=== PATIENT | male | born 1995 | race Caucasian/White ===

== ENCOUNTER 2019-03-24 10:24 | Inpatient (IN) | payer OTHER ==
[2019-03-23 12:13] VITALS: Ht 170.2 cm; Wt 101.1 kg
[~2019-03-24] VITALS: Ht 170.2 cm; Wt 101.1 kg
[2019-03-24] VITALS (26 sets, daily range): BP systolic 106–128; BP diastolic 56–84; PULSE 78–107; RESP 10–25
[~2019-03-24 10:24] MED LIST: CEFAZOLIN 2 GM/50 ML (PMX) 50 ML IVPB SCH; LACTATED RINGER'S 1,000 ML (ENTER RATE) IV SCH
--- NOTE | 2019-03-24 12:11 | PREAC ---
Date/Time of Note Date/Time of Note DATE: 03/24/19 TIME: 12:09 Anesthesia Eval and Record Evaluation Time Pre-Procedure Interview DATE: 03/24/19 TIME: 12:09 Age 23 Sex male NPO: 8 hrs Preoperative diagnosis L4-5, L5-S1 spinal stenosis Planned procedure L4-5, L5-S1 decompression, L4-5 microdiscectomy Past Medical History Past Medical History: Includes GI: Obesity Surgery & Anesthesia Issues No known issue Meds Anticoagulation: No Beta Kranthi within 24 hr: No Reason Beta Kranthi not given: Pt. not on B-Kranthi No Active Prescriptions or Reported Meds Current Medications Cefazolin Sodium/ Dextrose 50 ml @ 100 mls/hr ONCE IVPB ; Start 03/24/19 at 0 7:00; Stop 03/24/19 at 23:59 Lactated Ringer's 1,000 ml @ 0 mls/hr Q0M IV Last administered on 03/24/19at 11:43; Admin Dose 25 MLS/HR; Start 03/24/19 at 07:00 Meds reviewed: Yes Allergies Coded Allergies: No Known Drug Allergies (Verified Allergy, Unknown, 03/24/19) Allergies Reviewed: Yes Labs/Studies Labs Reviewed: Reviewed by anesthesiologist test: N/A Pre-procedure Exam Last vitals Vital Signs Date Temp Pulse Resp B/P (MAP) Pulse Ox O2 O2 Flow FiO2 Time Delivery Rate 03/24/19 97.1 84 16 119/82 97 Room Air 11:43 (94) Airway: Adequate mouth opening Mallampati: Mallampati II Teeth: Normal Lung: Normal Heart: Normal ASA Physical Status ASA physical status: 2 Emergency: None Planned Anesthetic General/MAC: ETT Planned Pain Management Parenteral pain med Pre-operative Attestations Prior to commencing anesthesia and surgery, the patient was re-evaluated, there was verification of: *The patient's identity *The results of appropriate recent lab work and preoperative vital signs *The above evaluation not changing prior to induction *Anesthetic plan, risk benefits, alternative and complications discussed with patient/family; questions answered; patient/family understands, accepts and wishes to proceed. SHAYAN ESPINAL MD Mar 24, 2019 12:11
[2019-03-24] MEDS ORDERED: POLYMYXIN/BACITRACIN 1L IRRIG ONE (12:59)
[2019-03-24] MEDS ORDERED: BUPIVACAINE 0.25%/EPI (SDV) 30 ML INJ ONE (12:59)
[2019-03-24] MEDS ORDERED: CA CHLORIDE 10% 10 ML SYRINGE ONE (12:59)
[2019-03-24] MEDS ORDERED: THROMBIN 5000 UNIT (RECOTHROM) VIAL ONE ×2 (12:59→15:04)
[2019-03-24] MEDS ORDERED: GELATIN SIZE 100 SPONGE ONE (12:59)
[2019-03-24] MEDS ORDERED: GLYCOPYRROLATE 0.4 MG INJ ONE ×3 (13:04→14:12)
[2019-03-24] MEDS ORDERED: LIDOCAINE 2% (SDV) 5 ML INJ ONE (13:04)
[2019-03-24] MEDS ORDERED: ROCURONIUM 50 MG INJ ONE ×2 (13:04→14:54)
[2019-03-24] MEDS ORDERED: SUCCINYLCHOLINE CHLORIDE 100 MG/5 ML SYG IV ONE (13:04)
[2019-03-24] MEDS ORDERED: NEOSTIGMINE 3 MG/3 ML SYRINGE ONE ×2 (13:04→14:12)
[2019-03-24] MEDS ORDERED: PROPOFOL 20 ML ONE (13:04)
[2019-03-24] MEDS ORDERED: MEPERIDINE 100 MG INJ ONE (13:04)
--- NOTE | 2019-03-24 13:23 | HPN ---
Date/Time of Note Date/Time of Note DATE: 03/24/19 TIME: 13:22 Interval H&P Admission Note Pt. seen H&P reviewed: No system changes JEN CABRERA PA-C Mar 24, 2019 13:23
[2019-03-24] MEDS ORDERED: ONDANSETRON 4 MG INJ IV PRN ×2 (13:30→17:30)
[2019-03-24] MEDS ORDERED: BISACODYL 10 MG SUPP PR PRN (13:30)
[2019-03-24] MEDS ORDERED: ACETAMINOPHEN 325 MG TAB PO PRN (13:30)
[2019-03-24] MEDS ORDERED: CEFAZOLIN 1 GM/50 ML (PMX) 50 ML IVPB SCH (13:30)
[2019-03-24] MEDS ORDERED: DIPHENHYDRAMINE 50 MG INJ IV PRN ×2 (13:30→17:30)
[2019-03-24] MEDS ORDERED: NALOXONE (0.4 MG/ML) INJ IV PRN (13:30)
[2019-03-24] MEDS ORDERED: AL HYDROX/MG HYDROX/SIMETH 30 ML CUP PO PRN (13:30)
[2019-03-24] MEDS ORDERED: traMADol 50 MG TAB PO PRN ×2 (13:30)
[2019-03-24] MEDS ORDERED: DIPHENHYDRAMINE 25 MG CAP PO PRN (13:30)
[2019-03-24] MEDS ORDERED: CEPASTAT LOZENGE MT PRN (13:30)
[2019-03-24] MEDS ORDERED: CEFAZOLIN 1 GM INJ ONE (14:12)
[2019-03-24] MEDS ORDERED: SEVOFLURANE 15 MIN ONE (14:45)
[2019-03-24] MEDS ORDERED: HEPARIN 1000 UNITS/ML 10 ML INJ ONE (14:55)
[2019-03-24] MEDS ORDERED: ONDANSETRON 4 MG INJ ONE (15:57)
--- NOTE | 2019-03-24 16:29 | SIPON ---
Date/Time of Note Date/Time of Note DATE: 03/24/19 TIME: 16:28 Operative Report Preoperative Diagnosis Lumbar radiculopathy Postoperative Diagnosis Lumbar radiculopathy Operation/Procedure Performed Lumbar decompression Surgeon see signature line assistant professor of sociology Aurelia Anesthesia: general Estimated blood loss: 10 - 50 ml's Transfusion Required none Specimen Disc Grafts/Implants none Complications none LINDA MARCIAL MD Mar 24, 2019 16:29
[2019-03-24] MEDS ORDERED: HYDROmorphONE 1 MG/5 ML IV SYRINGE IV ONE (17:06)
[2019-03-24] MEDS ORDERED: LEVALBUTEROL (NEB) 1.25 MG/0.5 ML AMP HHN PRN (17:30)
[2019-03-24] MEDS ORDERED: KETOROLAC 30 MG INJ IV PRN (17:30)
[2019-03-24] MEDS ORDERED: OXYCODONE/ACETAMINOPHEN (5/325) TAB PO PRN ×2 (17:30)
[2019-03-24] MEDS ORDERED: MEPERIDINE 25 MG INJ IV PRN (17:30)
[2019-03-24] MEDS ORDERED: HYDROmorphONE 1 MG/5 ML IV SYRINGE IV PRN ×3 (17:30)
[2019-03-24] MEDS ORDERED: FENTAnyl 50 MCG/ML VIAL IV PRN ×3 (17:30)
--- NOTE | 2019-03-24 17:30 | OPR ---
DATE OF OPERATION: 03/24/2019 PREOPERATIVE DIAGNOSES: 1. Right lumbar radiculopathy with foot drop. 2. Right L4-L5 stenosis. 3. Right L4-5 hematoma. POSTOPERATIVE DIAGNOSES: 1. Right lumbar radiculopathy with foot drop. 2. Right L4-L5 stenosis. 3. Right L4-5 hematoma. OPERATION PERFORMED: 1. Right L4-L5 decompression. 2. Right L4-L5 microdiskectomy. 3. Evacuation of epidural hematoma. 4. Use of operative microscope. 5. Use of C-arm fluoroscopy with rotation without radiologist present. 6. Intraoperative neuromonitoring. PRIMARY SURGEON: Elbert Zepeda MD CORDUR[place] CUTTING SUPERVISOR: Sobia Moses PA-C NEED FOR RIG MANAGER: During this spinal surgical procedure, my hospital aides and assistants teacher was used to retract and protect the spinal nerves and dural sac. My hospital aides and assistants teacher also employed the suction catheters to evacuate blood from the surgical field to improve visualization of the neural structures. The hospital aides and assistants teacher was medically necessary to facilitate the completion of the surgery in a safe and expeditious manner. [facility] [place] regulations, as well as hospital bylaws, preclude the use of non-licensed health care personnel, such as operating room technicians, to perform these functions. FINDINGS: Neuromonitoring at the start of the case revealed left L5 amplitude down 10%, right L5 down 60%, left S1 down 20%, right S1 down 40%. At the end of the case, nerve signals returned to normal. Patient had hematoma around the nerve root. There is active venous bleeding and significant vascularization with compression of the L5 nerve root. There was a disk herniation identified at L4-L5 as well. There is stenosis. ESTIMATED BLOOD LOSS: 50 mL. DRAINS: None. SPECIMENS: L4-L5 disk. COMPLICATIONS OF PROCEDURES: None. ANESTHESIOLOGIST: Dr. Gaytan. TYPE OF ANESTHESIA: General. INDICATIONS FOR PROCEDURE: This is a 23-year-old gentleman who developed a right-sided foot drop. MRI showed a right-sided herniation at L4-L5 with a large hematoma which extended all the way down to S1. Given the neurological deficits, it is recommended he undergo the above procedure. Preoperatively, we discussed risks, benefits, and alternatives. He understood and wished to proceed. Initially, the plan was to decompress all the way down to the sacrum, but a stat MRI was done right before the surgery showing that the hematoma was smaller in nature and was localized to the L4-L5 level and just below the disk space. DESCRIPTION OF PROCEDURE IN DETAIL: The patient was identified in the preoperative holding area, given Ancef antibiotic, taken to the operating room, where he was successfully placed under general anesthesia. Neuromonitoring leads were placed, sequential compressive devices were applied. Remote intraoperative neuromonitoring was performed by Dr. Rosales from 2:00 to 4:30 to include SSEP, MEP, and EMG performed by bettermarks. The patient was placed on the operating table in prone position over a Kal frame. All bony prominences were well padded. Back was then prepped and draped in usual sterile fashion. Using the sterile fluoroscope, I identified the incision site. I anesthetized skin, subcutaneous tissue with Marcaine and epinephrine. Incision was then made over the L4-L5 level. Incision was taken down to dorsal fascia, which was incised with Bovie cautery. I then subperiosteally dissected the L4 and L5 lamina. The patient was morbidly obese with BMI greater than 35. This altered the field and for this I had to use extended retractors. Once I identified the correct level with a lateral C-arm image, a microscope was brought in and a right-sided hemilaminotomy, partial medial facetectomy, and foraminotomy were then performed. Ligamentum flavum was then sharply dissected. Here abundant vascular tissue was identified and there was active venous bleeding. There were large epidural veins which was likely the cause of the patient's hematoma. I was able to remove the ligamentum flavum and identified the vessels which I was able to cauterize. There was a leash of vessels around the L5 nerve root, making it immobile. I therefore had to perform a hemilaminotomy of the superior aspect of L5 in order to fully decompress the L5 nerve root. This added at least 30 minutes to the procedure, making the procedure more difficult. Once I identified the leash of vessels. I was able to cauterize the vessels to allow mobilization of L5. Under the microscope, I was able to complete the neurolysis of the L5 nerve root to mobilize it. Once I decompressed the L4 and L5 nerve roots the nerve signals improved but were still not yet normal. Therefore, in addition to the decompression, I also performed a microdiskectomy. I identified the annulus, made an annulotomy followed by limited microdiskectomy. Once this was done, all the nerve signals improved. I then irrigated the disk space and the wound. Hemostasis was achieved. A valsalva was performed and there was no leak of CSF. The wound was dry, and therefore, I did not place a drain. I closed the fascia with #1 Vicryl stitch. I closed the deep subcutaneous layer with #1 Vicryl stitch. I closed the subcutaneous tissue with a 2-0 Vicryl stitch. A 4-0 Monocryl closure was then performed. Dermabond was then applied. The patient was awakened from anesthesia and taken to the recovery room in stable condition. Lap, sponge, and instrument counts were correct x2. There were no apparent complications during the procedure. The patient will be admitted to the orthopedic hood for routine postoperative care to include pain control, neurovascular checks, antibiotics, and physical therapy. Dictated By: ELBERT ADAM/CHUYITA Conf#: [id number] DID#: [id number] TINA
--- NOTE | 2019-03-24 17:58 | CONS ---
Assessment/Plan Assessment/Plan Problems: (1) S/P lumbar microdiscectomy Onset Date: ~ 03/24/2019 Status: Acute Comment: She was seen in recovery postoperatively and is without complications or complaints. I expect given his overall vibrant good recovery and rehabil itative candidate (2) Lumbar disc disease with radiculopathy Status: Chronic Comment: Postop (3) Right foot drop Status: Chronic Comment: Had this for a year. He will take some time with physical therapy after surgery to require mobility. Consultation Date/Type/Reason Admit Date/Time Mar 24, 2019 at 10:24 Initial Consult Date March 24 2019 Type of Consult Internal medicine Reason for Consultation Post operative assistance after lumbar microdiscectomy Requesting Provider: LINDA MARCIAL MD Date/Time of Note DATE: 03/24/19 TIME: 17:55 24 HR Interval Summary Free Text/Dictation He is seen postop. He is fully awake and alert. He reports that he still having back pain and some leg pain but it feels different than he did preoperatively. Constitutional: no complaints Detailed Summary Respiratory: no complaints Cardiovascular: no complaints Gastrointestinal: no complaints Genitourinary: no complaints Musculoskeletal: back pain Neurologic: no complaints Exam/Review of Systems Exam Vitals Vital Signs Date Temp Pulse Resp B/P (MAP) Pulse Ox O2 O2 Flow FiO2 Time Delivery Rate 03/24/19 100 25 124/84 98 Nasal 2.0 17:44 (97) Cannula 03/24/19 98.7 16:40 Constitutional: alert, oriented Respiratory: clear to auscultation, normal air movement Cardiovascular: regular rate and rhythm, nl pulses Gastrointestinal: soft, nl liver, spleen, non-tender Medications Medication Current Medications Lactated Ringer's 1,000 ml @ 0 mls/hr Q0M IV Last administered on 03/24/19at 11:43; Admin Dose 25 MLS/HR; Start 03/24/19 at 07:00 Potassium Chloride/Dextrose/ Sod Cl 1,000 ml @ 100 mls/hr Q10H IV ; Start 03/24/19 at 13:23 Tramadol HCl (Ultram) 50 mg Q4H PRN PO .PAIN 1-5; Start 03/24/19 at 13:30 Tramadol HCl (Ultram) 100 mg Q4H PRN PO .PAIN 6-10; Start 03/24/19 at 13:30 Hydromorphone HCl (Dilaudid) 0.2 mg Q1H PRN IV .BREAKTHROUGH PAIN; Start at 13:30 Ondansetron HCl (Zofran Inj) 4 mg Q6H PRN IV NAUSEA/VOMITING; Start 03/24/19 at 13:30 Bisacodyl (Dulcolax Supp) 10 mg DAILY PRN [place] .CONSTIPATION; Start 03/24/19 at 13:30 Docusate Sodium (Colace) 100 mg BID PO ; Start 03/24/19 at 21:00 Al Hydrox/Mg Hydrox/Simethicone (Mag-Al Plus) 15 ml Q6H PRN PO .CONSTIPATION/DYSPEPSIA; Start 03/24/19 at 13:30 Acetaminophen (Tylenol Tab) 650 mg Q4H PRN PO RICO OR TEMP GREATER THAN 101.3F; Start 03/24/19 at 13:30 Cyclobenzaprine HCl (Flexeril) 10 mg TID PRN PO .MUSCLE SPASMS; Start 03/24/19 at 13:30 Phenol (Cepastat Lozenge) 1 lozenge PRN PRN [place] .SORE THROAT; Start 03/24/19 at 13:30 Diphenhydramine HCl (Benadryl) 25 mg Q6H PRN PO .ITCHING; Start 03/24/19 at 13:30 Diphenhydramine HCl (Benadryl) 25 mg Q6H PRN IV .ITCHING; Start 03/24/19 at 13:30 Naloxone HCl (Narcan) 0.2 mg Q2M PRN IV .RR 8 BREATHS/MIN OR LESS; Start 03/24/19 at 13:30 Hydromorphone HCl (Dilaudid) 0.2 mg PACU PRN IV MILD PAIN 1-3; Start 03/24/19 at 17:30; Stop 03/24/19 at 23:30 Hydromorphone HCl (Dilaudid) 0.4 mg PACU PRN IV MOD PAIN 4-6 Last administered on 03/24/19at 17:17; Admin Dose 0.4 MG; Start 03/24/19 at 17:30; Stop 03/24/19 at 23:30 Hydromorphone HCl (Dilaudid) 0.6 mg PACU PRN IV SEVERE PAIN 7-10 Last administered on 03/24/19at 17:15; Admin Dose 0.6 MG; Start 03/24/19 at 17:30; Stop 03/24/19 at 23:30 Fentanyl (Sublimaze) 25 mcg PACU ORDER PRN IV MILD PAIN 1-3; Start 03/24/19 at 17:30; Stop 03/24/19 at 23:30 Fentanyl (Sublimaze) 50 mcg PACU ORDER PRN IV MOD PAIN 4-6; Start 03/24/19 at 1 7:30; Stop 03/24/19 at 23:30 Fentanyl (Sublimaze) 75 mcg PACU ORDER PRN IV SEVERE PAIN 7-10; Start 03/24/19 at 17:30; Stop 03/24/19 at 23:30 Ketorolac Tromethamine (Toradol) 30 mg PACU ORDER PRN IV FOR PAIN AFTER IV NARCOTIC MED Last administered on 03/24/19at 17:47; Admin Dose 30 MG; Start 03/24/19 at 17:30; Stop 03/24/19 at 23:30 Oxycodone/ Acetaminophen (Percocet (5/ 325)) 1 tab PACU ORDER PRN PO .PAIN 1-5; Start 03/24/19 at 17:30; Stop 03/24/19 at 23:30 Oxycodone/ Acetaminophen (Percocet (5/ 325)) 2 tab PACU ORDER PRN PO .PAIN 6-10; Start 03/24/19 at 17:30; Stop 03/24/19 at 23:30 Ondansetron HCl (Zofran Inj) 4 mg PACU ORDER PRN IV NAUSEA/VOMITING Last administered on 03/24/19at 17:30; Admin Dose 4 MG; Start 03/24/19 at 17:30; Stop 03/24/19 at 23:30 Levalbuterol (Xopenex Neb) 1.25 mg PACU ORDER PRN HHN .WHEEZING; Start 03/24/19 at 17:30; Stop 03/24/19 at 23:30 Meperidine HCl (Demerol) 25 mg PACU ORDER PRN IV .RIGORS Last administered on 03/24/19at 17:29; Admin Dose 25 MG; Start 03/24/19 at 17:30; Stop 7/16/19 at 23:30 Diphenhydramine HCl (Benadryl) 25 mg PACU ORDER PRN IV .PRURITUS; Start 03/24/19 at 17:30; Stop 03/24/19 at 23:30 Cefazolin Sodium 50 ml @ 100 mls/hr Q8H IVPB ; Start 03/24/19 at 20:00; Stop 03/25/19 at 12:29 LOWELL DE LEON MD Mar 24, 2019 17:58
[2019-03-24] MEDS: HYDROmorphONE 0.5 MG/0.5 ML SYG IV PRN ×2 (18:48→23:07)
[2019-03-24] MEDS: CYCLOBENZAPRINE 10 MG TAB PO PRN (18:48)
[2019-03-24] MEDS: D5W-0.45 NACL + KCL 20 MEQ 1,000 ML IV SCH ×2 (18:49→23:23)
--- NOTE | 2019-03-24 19:11 | PAC ---
Date/Time of Note Date/Time of Note DATE: 03/24/19 TIME: 19:11 Post-Anesthesia Notes Post-Anesthesia Note Last documented vital signs Vital Signs Date Temp Pulse Resp B/P (MAP) Pulse Ox O2 O2 Flow FiO2 Time Delivery Rate 03/24/19 98.9 96 16 113/67 97 Nasal 2.0 19:00 (82) Cannula Activity: WNL Respiratory function: WNL Cardiovascular function: WNL Mental status: Baseline Pain reasonably controlled: Yes Hydration appropriate: Yes Nausea/Vomiting absent: Yes SHAYAN ESPINAL MD Mar 24, 2019 19:11
[2019-03-24] MEDS: CEFAZOLIN 1 GM/50 ML (PMX) 50 ML IVPB SCH (21:12)
[2019-03-24] MEDS: DOCUSATE SODIUM 100 MG CAP PO SCH (21:12)
[2019-03-25 00:23] VITALS: BP 104/62; PULSE 77; RESP 19
[2019-03-25] MEDS: CEFAZOLIN 1 GM/50 ML (PMX) 50 ML IVPB SCH ×2 (03:49→12:11)
[2019-03-25] MEDS: HYDROmorphONE 0.5 MG/0.5 ML SYG IV PRN ×3 (03:49→10:18)
[2019-03-25] MEDS: D5W-0.45 NACL + KCL 20 MEQ 1,000 ML IV SCH (04:38)
[2019-03-25 07:25] VITALS: BP 111/68; PULSE 86; RESP 15
[2019-03-25] MEDS: DOCUSATE SODIUM 100 MG CAP PO SCH (08:19)
[2019-03-25] MEDS: CYCLOBENZAPRINE 10 MG TAB PO PRN (08:19)
[2019-03-25] MEDS ORDERED: HYDROCODONE/APAP (10/325) TAB PO PRN (11:30)
[2019-03-25] MEDS: HYDROCODONE/APAP (10/325) TAB PO PRN ×3 (12:12→18:36)
--- NOTE | 2019-03-25 12:46 | PN ---
Date/Time of Note Date/Time of Note DATE: 03/25/19 TIME: 12:44 Assessment/Plan VTE Prophylaxis Risk score (from Ns)>0 risk: 2 SCD applied (from Ns): Yes Pharmacological prophylaxis: NA/contraindicated Pharm contraindication: surgical contra Lines/Catheters IV Catheter Type (from Nrs): Peripheral IV Urinary Cath still in place: No Assessment/Plan Result Diagram: 03/25/1942603/25/19426 Results 24hrs Laboratory Tests Test 03/25/19 04:27 03/25/19 07:24 White Blood Count 9.7 Red Blood Count 4.87 Hemoglobin 14.3 Hematocrit 43.7 Mean Corpuscular Volume 89.7 Mean Corpuscular Hemoglobin 29.4 Mean Corpuscular Hemoglobin Concent 32.7 Red Cell Distribution Width 13.1 Platelet Count 301 Mean Platelet Volume 10.1 Immature Granulocytes % 0.300 Neutrophils % 56.9 Lymphocytes % 34.3 Monocytes % 7.3 Eosinophils % 0.9 Basophils % 0.3 Nucleated Red Blood Cells % 0.0 Immature Granulocytes # 0.030 Neutrophils # 5.5 Lymphocytes # 3.3 H Monocytes # 0.7 Eosinophils # 0.1 Basophils # 0.0 Nucleated Red Blood Cells # 0.0 Sodium Level 142 Potassium Level 4.3 Chloride Level 106 Carbon Dioxide Level 29 Anion Gap 7 Blood Urea Nitrogen 8 Creatinine 0.73 Est Glomerular Filtrat Rate mL/min > 60 Glucose Level 96 Calcium Level 8.8 Magnesium Level 1.9 Lab Scanned Report REFERENCE LAB Subjective 24 Hr Interval Summary Free Text/Dictation 23 yr old post lami for preop rt sided leg sx and foot drop. says post op back pain is bad, still some sense of numbness on the right vs good, labs ok voiding, no bm yet alert lungs clear, hr ok, abd soft ehl rt good lying flat imp: stable post op course. dc per ortho Musculoskeletal: back pain Exam/Review of Systems Exam Vitals Vital Signs Date Temp Pulse Resp B/P (MAP) Pulse Ox O2 O2 Flow FiO2 Time Delivery Rate 03/25/19 98.0 86 15 111/68 100 Nasal 07:25 (82) Cannula 03/24/19 2.0 20:00 Intake and Output 03/24/19 03/24/19 03/25/19 1515:00 23:00 07:00 IntakeIntake Total 300 ml 290 ml 1290 ml OutputOutput Total 20 ml 1120 ml BalanceBalance 300 ml 270 ml 170 ml Results Results 24hrs Laboratory Tests Test 03/25/19 04:27 03/25/19 07:24 White Blood Count 9.7 Red Blood Count 4.87 Hemoglobin 14.3 Hematocrit 43.7 Mean Corpuscular Volume 89.7 Mean Corpuscular Hemoglobin 29.4 Mean Corpuscular Hemoglobin Concent 32.7 Red Cell Distribution Width 13.1 Platelet Count 301 Mean Platelet Volume 10.1 Immature Granulocytes % 0.300 Neutrophils % 56.9 Lymphocytes % 34.3 Monocytes % 7.3 Eosinophils % 0.9 Basophils % 0.3 Nucleated Red Blood Cells % 0.0 Immature Granulocytes # 0.030 Neutrophils # 5.5 Lymphocytes # 3.3 H Monocytes # 0.7 Eosinophils # 0.1 Basophils # 0.0 Nucleated Red Blood Cells # 0.0 Sodium Level 142 Potassium Level 4.3 Chloride Level 106 Carbon Dioxide Level 29 Anion Gap 7 Blood Urea Nitrogen 8 Creatinine 0.73 Est Glomerular Filtrat Rate mL/min > 60 Glucose Level 96 Calcium Level 8.8 Magnesium Level 1.9 Lab Scanned Report REFERENCE LAB Medications Medication Current Medications Lactated Ringer's 1,000 ml @ 0 mls/hr Q0M IV Last administered on 03/24/19at 11:43; Admin Dose 25 MLS/HR; Start 03/24/19 at 07:00 Potassium Chloride/Dextrose/ Sod Cl 1,000 ml @ 100 mls/hr Q10H IV Last administered on 03/25/19at 04:38; Admin Dose 100 MLS/HR; Start 03/24/19 at 13:23 Tramadol HCl (Ultram) 50 mg Q4H PRN PO .PAIN 1-5; Start 03/24/19 at 13:30 Tramadol HCl (Ultram) 100 mg Q4H PRN PO .PAIN 6-10 Last administered on 03/25/19at 08:22; Admin Dose 100 MG; Start 03/24/19 at 13:30 Hydromorphone HCl (Dilaudid) 0.2 mg Q1H PRN IV .BREAKTHROUGH PAIN Last administered on 03/25/19at 10:18; Admin Dose 0.2 MG; Start 03/24/19 at 13:30 Ondansetron HCl (Zofran Inj) 4 mg Q6H PRN IV NAUSEA/VOMITING; Start 03/24/19 at 13:30 Bisacodyl (Dulcolax Supp) 10 mg DAILY PRN [place] .CONSTIPATION; Start 03/24/19 at 13:30 Docusate Sodium (Colace) 100 mg BID PO Last administered on 03/25/19at 08:19; Admin Dose 100 MG; Start 03/24/19 at 21:00 Al Hydrox/Mg Hydrox/Simethicone (Mag-Al Plus) 15 ml Q6H PRN PO .CONSTIPATION/DYSPEPSIA; Start 03/24/19 at 13:30 Acetaminophen (Tylenol Tab) 650 mg Q4H PRN PO RICO OR TEMP GREATER THAN 101.3F; Start 03/24/19 at 13:30 Cyclobenzaprine HCl (Flexeril) 10 mg TID PRN PO .MUSCLE SPASMS Last administered on 03/25/19at 08:19; Admin Dose 10 MG; Start 03/24/19 at 13:30 Phenol (Cepastat Lozenge) 1 lozenge PRN PRN [place] .SORE THROAT Last administered on 03/24/19at 23:02; Admin Dose 1 LOZENGE; Start 03/24/19 at 13:30 Diphenhydramine HCl (Benadryl) 25 mg Q6H PRN PO .ITCHING; Start 03/24/19 at 13:30 Diphenhydramine HCl (Benadryl) 25 mg Q6H PRN IV .ITCHING; Start 03/24/19 at 13:30 Naloxone HCl (Narcan) 0.2 mg Q2M PRN IV .RR 8 BREATHS/MIN OR LESS; Start 03/24/19 at 13:30 Acetaminophen/ Hydrocodone Bitart ([place] (10/325)) 1 tab Q4H PRN PO MODERATE PAIN LEVEL 4-6 Last administered on 03/25/19at 12:12; Admin Dose 1 TAB; Start 03/25/19 at 11:30 Acetaminophen/ Hydrocodone Bitart ([place] (10/325)) 2 tab Q6H PRN PO PAIN LEVEL 7-10; Start 03/25/19 at 11:30 KELSY BRANDT MD Mar 25, 2019 12:46
[2019-03-25 14:15] VITALS: BP 101/64; PULSE 104; RESP 14
--- NOTE | 2019-03-25 18:06 | DS ---
Date/Time of Note Date/Time of Note DATE: 03/25/19 TIME: 18:05 Discharge Summary Admission/Discharge Info Admit Date/Time Mar 24, 2019 at 10:24 Discharge Date/Time March 25 Discharge Diagnosis Lumbar stenosis Patient Condition: Good Procedures Lumbar discectomy Hospital Course Patient was admitted to the orthopedic hood after undergoing a lumbar discectomy. His postoperative course was uncomplicated. By postoperative day 1 he was deemed stable for discharge with follow-up arranged with the undersigned Home Meds No Active Prescriptions or Reported Meds Primary Care Provider Not On Staff Doctor Pending Labs Laboratory Tests Test 03/25/19 04:27 03/25/19 07:24 White Blood Count 9.7 10^3/ul (4.8-10.8) Red Blood Count 4.87 10^6/ul (4.70-6.10) Hemoglobin 14.3 g/dl (14.0-18.0) Hematocrit 43.7 % (42.0-52.0) Mean Corpuscular Volume 89.7 fl (82.0-101.0) Mean Corpuscular Hemoglobin 29.4 pg (29.0-33.0) Mean Corpuscular 32.7 g/dl (32.0-37.0) Hemoglobin Concent Red Cell Distribution Width 13.1 % (11.5-14.5) Platelet Count 301 10^3/UL (140-415) Mean Platelet Volume 10.1 fl (7.4-10.4) Immature Granulocytes % 0.300 % (0.001-0.429) Neutrophils % 56.9 % (39.0-77.0) Lymphocytes % 34.3 % (15.0-51.0) Monocytes % 7.3 % (0.0-11.0) Eosinophils % 0.9 % (0.0-7.0) Basophils % 0.3 % (0.0-2.0) Nucleated Red Blood Cells % 0.0 /100WBC (0.0-0.0) Immature Granulocytes # 0.030 10^3/ul (0.0-0.031) Neutrophils # 5.5 10^3/ul (1.6-7.5) Lymphocytes # 3.3 10^3/ul (0.8-2.9) Monocytes # 0.7 10^3/ul (0.3-0.9) Eosinophils # 0.1 10^3/ul (0.0-0.5) Basophils # 0.0 10^3/ul (0.0-0.1) Nucleated Red Blood Cells # 0.0 10^3/ul (0.0-0.0) Sodium Level 142 mmol/L (135-144) Potassium Level 4.3 mmol/L (3.5-5.1) Chloride Level 106 mmol/L (97-110) Carbon Dioxide Level 29 mmol/L (21-31) Anion Gap 7 (5-13) Blood Urea Nitrogen 8 mg/dl (7-20) Creatinine 0.73 mg/dl (0.61-1.24) Est Glomerular Filtrat > 60 mL/min (>60) Rate mL/min Glucose Level 96 mg/dl (70-220) Calcium Level 8.8 mg/dl (8.4-10.2) Magnesium Level 1.9 mg/dl (1.7-2.5) Lab Scanned Report REFERENCE LAB [id number] LINDA MARCIAL MD Mar 25, 2019 18:06
== END 2019-03-25 19:30 | disposition home or self-care (01) | DRG 518 ==
LOC: REC 10:24 → EDSTATUS 12:30 → MS1 18:27
PROVIDERS: ADMIT Specialist; ATTEND Specialist
PROC: 01NB0ZZ Release Lumbar Nerve, Open Approach (ICD-10-PCS; 2019-03-24)
PROC: [UNRECOGNIZED PROCEDURE] (2019-03-24)
PROC: 4A11X4G Monitoring of Peripheral Nervous Electrical Activity, Intraoperative, External Approach (ICD-10-PCS; 2019-03-24)
PROC: 0SB20ZZ Excision of Lumbar Vertebral Disc, Open Approach (ICD-10-PCS; principal; 2019-03-24 12:30)
DX: M51.16 Intervertebral disc disorders with radiculopathy, lumbar region (principal); G95.19 Other vascular myelopathies; M21.371 Foot drop, right foot; E66.01 Morbid (severe) obesity due to excess calories; Z68.34 Body mass index [BMI] 34.0-34.9, adult
CPT/HCPCS: 72114; 80048; 83735; 85025; 86999; 88304; 97110; 97116; 97161; 97530; J0690; J1170; J1644; J1885; J2175; J2405; J2710; J3010; J3480